=== PATIENT | male | born 1950 | race Caucasian/White ===

== ENCOUNTER 2021-07-23 13:10 | Emergency (ER) | payer OTHER ==
[2021-07-23 13:55] LABS: Hemoglobin 7.5 g/dL (13.5-17.5); Mean Corpuscular HGB CONC 34.6 g/dL (32.0-36.0); Mean Corpuscular Hemoglobin 30.4 pg (27.0-33.0); Mean Corpuscular Volume 87.9 fl (81.2-95.1); Mean Platelet Volume 10.1 fl (7.4-10.4); Platelet Count 405 10x3/uL (150-450); RBC Distribution Width 14.6 % (11.5-14.5); Red Blood Cell (RBC) Count 2.47 10x6/uL (4.32-5.72); White Blood Cell (WBC) Count 21.6 10x3/uL (3.5-10.5)
[2021-07-23 14:06] LABS: ALT (SGPT) 23 U/L (8-55); AST (SGOT) 24 U/L (5-34); Albumin 2.2 g/dL (3.4-4.8); Alkaline Phosphatase 58 U/L (40-110); Anion Gap 14 mmol/L (10-20); BUN (Urea Nitrogen) 108 mg/dL (8.4-25.7); CK (CPK) 26 U/L (30-200); Calc. Creatinine Clearance 0 mL/min (70-130); Calcium 7.8 mg/dL (7.8-10.44); Carbon Dioxide 21 mmol/L (23-31); Chloride 108 mmol/L (98-107); Globulin 3.3 g/dL (2.4-3.5); Glucose 134 mg/dL (80-115); Magnesium 2.3 mg/dL (1.6-2.6); Potassium 3.5 mmol/L (3.5-5.1); Protein, Total 5.5 g/dL (5.8-8.1); Sodium 139 mmol/L (136-145)
[2021-07-23 14:29] LABS: CKMB 1.5 ng/mL (0-6.6)
[2021-07-23 14:56] LABS: MDiff Complete? YES
[2021-07-23 15:01] LABS: Lymphocytes 7 % (21-51); Monocytes 4 % (0-10); Neutrophil 89 % (42-75)
[2021-07-23 15:02] LABS: Platelet Morphology Comment Appears Adequate
[2021-07-23 15:22] LABS: Bilirubin Neg (Negative); Blood, Urine Negative (Negative); Clarity Clear (Clear); Glucose, Urine (Dipstick) Normal (Negative); Ketone, Urine Negative (Negative); Leukocyte 25 (Negative); Nitrite Negative (Negative); Protein, Urine (Dipstick) 15 mg/dl (Neg-Trace); Urobilinogen Normal mg/dL (Less than 2)
[2021-07-23 15:31] LABS: Bacteria/HPF 4+ HPF (None Seen); Mucous/LPF Rare LPF (<2+); RBC/HPF None Seen HPF (0-3); Squamous Epithelial 0-3 HPF (0-3); Transitional Epithelial 0-3 HPF (None Seen); White Blood Cell Cast 0-3 LPF (None Seen)
[2021-07-23 19:14] LABS: SARS-CoV-2 NAA Rapid Test Not Detected (NotDetected)
== END 2021-07-23 17:45 ==
LOC: EEVIPCON 13:10 → CSHERS 13:10
DX: R29.810 Facial weakness (principal); D72.829 Elevated white blood cell count, unspecified; R91.8 Other nonspecific abnormal finding of lung field; Z20.822 Contact with and (suspected) exposure to COVID-19
CPT/HCPCS: 51701; 70450; 71045; 80053; 81003; 81015; 82550; 82553; 83735; 84484; 85025; 93005; 93010; U0002

== ENCOUNTER 2021-09-05 14:17 | Inpatient (IN) | payer OTHER ==
[2021-09-05 15:52] LABS: #Monocytes 0.3 10x3/uL (0.0-1.1); #Neutrophils 9.5 10x3/uL (1.5-8.4); %Basophils 0.1 % (0.0-2.0); %Lymphocytes 5.7 % (18.0-47.0); %Monocytes 2.4 % (0.0-10.0); %Neutrophils 91.6 % (40.0-75.0); Hemoglobin 10.1 g/dL (13.5-17.5); Mean Corpuscular HGB CONC 32.3 g/dL (32.0-36.0); Mean Corpuscular Hemoglobin 28.6 pg (27.0-33.0); Mean Corpuscular Volume 88.7 fl (81.2-95.1); Mean Platelet Volume 9.9 fl (7.4-10.4); Platelet Count 141 10x3/uL (150-450); RBC Distribution Width 16.9 % (11.5-14.5); Red Blood Cell (RBC) Count 3.53 10x6/uL (4.32-5.72); White Blood Cell (WBC) Count 10.4 10x3/uL (3.5-10.5)
[2021-09-05 15:56] LABS: ALT (SGPT) 17 U/L (8-55); AST (SGOT) 37 U/L (5-34); Albumin 2.4 g/dL (3.4-4.8); Alkaline Phosphatase 82 U/L (40-110); Anion Gap 19 mmol/L (10-20); BUN (Urea Nitrogen) 67 mg/dL (8.4-25.7); Bilirubin, Total 1.6 mg/dL (0.2-1.2); Calc. Creatinine Clearance 0 mL/min (70-130); Calcium 8.6 mg/dL (7.8-10.44); Carbon Dioxide 18 mmol/L (23-31); Chloride 107 mmol/L (98-107); Globulin 4.1 g/dL (2.4-3.5); Glucose 111 mg/dL (80-115); Potassium 3.2 mmol/L (3.5-5.1); Protein, Total 6.5 g/dL (5.8-8.1); Sodium 141 mmol/L (136-145)
[2021-09-05 16:08] LABS: Bilirubin 1+ (Negative); Blood, Urine 250 (Negative); Clarity Cloudy (Clear); Glucose, Urine (Dipstick) Normal (Negative); Ketone, Urine 5 mg/dL (Negative); Leukocyte 500 (Negative); Nitrite Negative (Negative); Protein, Urine (Dipstick) 30 mg/dl (Neg-Trace)
[2021-09-05 16:22] LABS: Bacteria/HPF 4+ HPF (None Seen); Squamous Epithelial 0-3 HPF (0-3)
[2021-09-05 17:31] LABS: INR-International Normal Ratio 1.5; PTT 31.7 sec (22.0-33.0); Prothrombin Time 15.9 sec (9.5-12.1)
[2021-09-05] MEDS ORDERED: cefTRIAXone\\ROCEPHIN 1 GM VIAL ONE (17:40)
[2021-09-05 18:18] LABS: Lactic Acid 1.8 mmol/L (0.5-2.2)
[2021-09-05] MEDS ORDERED: Ondansetron ODT 4 MG TAB PO PRN (19:49)
[2021-09-05] MEDS ORDERED: Guaifenesin DM 100-10/5 ML UDCUP PO PRN (19:49)
[2021-09-05] MEDS ORDERED: Spironolactone 25 MG TAB PO SCH (20:30)
[2021-09-05] MEDS: Heparin 5,000 UNITS/ML VIAL SC SCH ×2 (20:47→21:01)
[2021-09-05] MEDS: HYDROcodone/Acetaminophen 5/325 mg Tablet PO PRN (20:47)
[2021-09-05] MEDS ORDERED: VANCOMYCIN 1.25 GM/250 ML BAG 1.25 GM in Premix Bag 1 BAG IVPB SCH ×2 (21:00→22:00)
[2021-09-05] MEDS ORDERED: Potassium Chloride 10 MEQ in Premix Bag 1 BAG IVPB SCH (22:00)
[2021-09-05] MEDS ORDERED: Potassium Chloride 20 MEQ TAB PO SCH (22:00)
[2021-09-05] MEDS: Ondansetron PF 4 MG/2 ML Vial IVP PRN (23:12)
[2021-09-06] MEDS ORDERED: Furosemide 40 MG/4 ML VIAL SLOW IVP SCH (03:15)
[2021-09-06] MEDS: Furosemide 40 MG/4 ML VIAL SLOW IVP SCH ×2 (03:56→16:22)
[2021-09-06 06:36] LABS: #Monocytes 0.3 10x3/uL (0.0-1.1); #Neutrophils 7.6 10x3/uL (1.5-8.4); %Basophils 0.1 % (0.0-2.0); %Eosinophils 0.1 % (0.0-6.0); %Lymphocytes 6.7 % (18.0-47.0); %Monocytes 3.3 % (0.0-10.0); %Neutrophils 89.4 % (40.0-75.0); Hemoglobin 8.8 g/dL (13.5-17.5); Mean Corpuscular HGB CONC 31.7 g/dL (32.0-36.0); Mean Corpuscular Hemoglobin 27.8 pg (27.0-33.0); Mean Corpuscular Volume 87.7 fl (81.2-95.1); Mean Platelet Volume 10.1 fl (7.4-10.4); Platelet Count 114 10x3/uL (150-450); RBC Distribution Width 16.8 % (11.5-14.5); Red Blood Cell (RBC) Count 3.17 10x6/uL (4.32-5.72); White Blood Cell (WBC) Count 8.5 10x3/uL (3.5-10.5)
[2021-09-06 06:48] LABS: ALT (SGPT) 15 U/L (8-55); AST (SGOT) 25 U/L (5-34); Albumin 2.1 g/dL (3.4-4.8); Alkaline Phosphatase 79 U/L (40-110); Anion Gap 16 mmol/L (10-20); BUN (Urea Nitrogen) 69 mg/dL (8.4-25.7); Bilirubin, Total 1.2 mg/dL (0.2-1.2); Calc. Creatinine Clearance 31 mL/min (70-130); Calcium 7.9 mg/dL (7.8-10.44); Carbon Dioxide 21 mmol/L (23-31); Chloride 110 mmol/L (98-107); Globulin 3.6 g/dL (2.4-3.5); Glucose 117 mg/dL (80-115); Magnesium 2.3 mg/dL (1.6-2.6); Potassium 3.6 mmol/L (3.5-5.1); Protein, Total 5.7 g/dL (5.8-8.1); Sodium 143 mmol/L (136-145)
[2021-09-06 06:57] LABS: Platelet Morphology Comment Appears Decreased; RBC Morphology Normal
[2021-09-06] MEDS ORDERED: Spironolactone 25 MG TAB PO SCH (08:00)
[2021-09-06] MEDS: Albumin 25% 25 GM/100 ML BOT IVPB SCH ×4 (08:37→21:31)
[2021-09-06 11:29] LABS: Hemoglobin A1c 4.1 % (4.0-6.0)
[2021-09-06] MEDS ORDERED: Sodium Bicarbonate 2.5 MEQ/5 ML VIAL ONE (11:33)
[2021-09-06 13:18] LABS: BF Color Yellow; Body Fluid Source Peritoneal Fluid; Clarity Clear (Clear); Tube # EDTA
[2021-09-06] MEDS: Heparin 5,000 UNITS/ML VIAL SC SCH ×2 (16:03→19:02)
[2021-09-06 17:53] LABS: SARS-CoV-2 PCR by NAA Not Detected (NotDetected)
[2021-09-06] MEDS ORDERED: Albumin 25% 25 GM/100 ML BOT IVPB SCH (18:00)
[2021-09-06] MEDS: cefTRIAXone\\ROCEPHIN 2 GM in Sodium Chloride 0.9% 100 ML IVPB SCH (18:32)
[2021-09-06] MEDS: Vancomycin HCl 1 GM in Sodium Chloride 0.9% 250 ML 250 ML IVPB SCH (21:31)
[2021-09-07 04:07] LABS: #Monocytes 0.2 10x3/uL (0.0-1.1); %Eosinophils 0.8 % (0.0-6.0); %Lymphocytes 14.7 % (18.0-47.0); %Monocytes 3.8 % (0.0-10.0); %Neutrophils 80.3 % (40.0-75.0); Anion Gap 14 mmol/L (10-20); BUN (Urea Nitrogen) 70 mg/dL (8.4-25.7); Calc. Creatinine Clearance 33 mL/min (70-130); Calcium 7.9 mg/dL (7.8-10.44); Carbon Dioxide 22 mmol/L (23-31); Chloride 109 mmol/L (98-107); Glucose 102 mg/dL (80-115); Hemoglobin 7.2 g/dL (13.5-17.5); Mean Corpuscular HGB CONC 32.4 g/dL (32.0-36.0); Mean Corpuscular Hemoglobin 28.1 pg (27.0-33.0); Mean Corpuscular Volume 86.7 fl (81.2-95.1); Mean Platelet Volume 9.8 fl (7.4-10.4); RBC Distribution Width 16.7 % (11.5-14.5); Red Blood Cell (RBC) Count 2.56 10x6/uL (4.32-5.72); Sodium 142 mmol/L (136-145)
[2021-09-07 04:29] LABS: Platelet Count 86 10x3/uL (150-450); Platelet Morphology Comment Appears Decreased; RBC Morphology Normal
[2021-09-07] MEDS: Albumin 25% 25 GM/100 ML BOT IVPB SCH ×3 (04:57→15:09)
[2021-09-07] MEDS: Heparin 5,000 UNITS/ML VIAL SC SCH ×3 (07:11→19:18)
[2021-09-07] MEDS: HYDROcodone/Acetaminophen 7.5/325 mg Tablet PO PRN (07:29)
[2021-09-07] MEDS ORDERED: Potassium Chloride 20 MEQ TAB PO SCH (09:00)
[2021-09-07 11:37] LABS: Hemoglobin A1c 4.2 % (4.0-6.0)
[2021-09-07] MEDS ORDERED: Sodium Chloride 0.9% 100 ML ONE (15:52)
[2021-09-07] MEDS: cefTRIAXone\\ROCEPHIN 2 GM in Sodium Chloride 0.9% 100 ML IVPB SCH ×2 (16:18→16:47)
[2021-09-07 20:55] LABS: Vancomycin, Trough 16.2 ug/mL
[2021-09-07] MEDS: Vancomycin HCl 1 GM in Sodium Chloride 0.9% 250 ML 250 ML IVPB SCH (22:55)
[2021-09-08] MEDS: Albumin 25% 25 GM/100 ML BOT IVPB SCH ×2 (01:20→06:40)
[2021-09-08] MEDS: Heparin 5,000 UNITS/ML VIAL SC SCH ×3 (08:06→21:51)
[2021-09-08] MEDS: HYDROcodone/Acetaminophen 7.5/325 mg Tablet PO PRN ×3 (08:08→18:22)
[2021-09-08 08:25] LABS: Anion Gap 12 mmol/L (10-20); BUN (Urea Nitrogen) 75 mg/dL (8.4-25.7); Calc. Creatinine Clearance 40 mL/min (70-130); Carbon Dioxide 24 mmol/L (23-31); Chloride 108 mmol/L (98-107); Glucose 138 mg/dL (80-115); Iron 15 ug/dL (65-175); Iron Binding Capacity, Total 129 mcg/dL (261-462); Potassium 3.2 mmol/L (3.5-5.1); Sodium 141 mmol/L (136-145)
[2021-09-08 08:46] LABS: Ferritin 91.65 ng/mL (22-322)
[2021-09-08 09:01] LABS: Hep B Surf Ag NonReactive S/CO (NonReactive)
[2021-09-08] MEDS ORDERED: Potassium Chloride 20 MEQ TAB PO SCH (13:30)
[2021-09-08 15:02] LABS: #Eosinphils 0.1 10x3/uL (0.0-0.5); #Monocytes 0.3 10x3/uL (0.0-1.1); #Neutrophils 5.3 10x3/uL (1.5-8.4); %Basophils 0.2 % (0.0-2.0); %Eosinophils 1.7 % (0.0-6.0); %Lymphocytes 11.5 % (18.0-47.0); %Monocytes 4.3 % (0.0-10.0); %Neutrophils 81.8 % (40.0-75.0); Hemoglobin 7.3 g/dL (13.5-17.5); Mean Corpuscular HGB CONC 32.6 g/dL (32.0-36.0); Mean Corpuscular Hemoglobin 28.3 pg (27.0-33.0); Mean Corpuscular Volume 86.8 fl (81.2-95.1); Platelet Count 81 10x3/uL (150-450); RBC Distribution Width 16.4 % (11.5-14.5); Red Blood Cell (RBC) Count 2.58 10x6/uL (4.32-5.72); White Blood Cell (WBC) Count 6.5 10x3/uL (3.5-10.5)
[2021-09-08] MEDS ORDERED: Iron Sucrose Complex 200 MG in Sodium Chloride 0.9% 100 ML IVPB SCH (16:45)
[2021-09-08] MEDS: cefTRIAXone\\ROCEPHIN 2 GM in Sodium Chloride 0.9% 100 ML IVPB SCH (18:24)
[2021-09-08 19:05] LABS: HBCM Index 0.05 S/CO (0-0.79); Hep A IgM AB Non-Reactive (NonReactive); Hep A IgM S/CO 0.61 S/CO (0-0.79); Hepatitis B Core IgM Abs Non-Reactive (NonReactive)
[2021-09-08 19:25] LABS: Hep C IgG Ab Reflex HepC Qnt (NonReactive); Hep C Index 16.65 S/CO (0-0.79)
[2021-09-09] MEDS: HYDROcodone/Acetaminophen 7.5/325 mg Tablet PO PRN ×2 (00:53→20:12)
[2021-09-09] MEDS: Vancomycin HCl 1 GM in Sodium Chloride 0.9% 250 ML 250 ML IVPB SCH (01:14)
[2021-09-09] MEDS ORDERED: Vancomycin HCl 1 GM in Sodium Chloride 0.9% 250 ML 250 ML IVPB SCH (03:00)
[2021-09-09] MEDS ORDERED: Iron, Sodium Ferric Gluconate 250 MG, Admixture Fee 1 EACH in Sodium Chloride 0.9% 250 ... IVPB SCH (07:00)
[2021-09-09] MEDS: Heparin 5,000 UNITS/ML VIAL SC SCH ×2 (07:50→20:18)
[2021-09-09 08:20] LABS: #Eosinphils 0.1 10x3/uL (0.0-0.5); #Monocytes 0.2 10x3/uL (0.0-1.1); #Neutrophils 4.5 10x3/uL (1.5-8.4); %Eosinophils 1.7 % (0.0-6.0); %Lymphocytes 9.7 % (18.0-47.0); %Monocytes 3.9 % (0.0-10.0); %Neutrophils 84.3 % (40.0-75.0); Hemoglobin 8.1 g/dL (13.5-17.5); Mean Corpuscular HGB CONC 32.4 g/dL (32.0-36.0); Mean Corpuscular Hemoglobin 27.8 pg (27.0-33.0); Mean Corpuscular Volume 85.9 fl (81.2-95.1); Mean Platelet Volume 10.3 fl (7.4-10.4); Platelet Count 68 10x3/uL (150-450); Red Blood Cell (RBC) Count 2.91 10x6/uL (4.32-5.72); White Blood Cell (WBC) Count 5.4 10x3/uL (3.5-10.5)
[2021-09-09 08:37] LABS: ALT (SGPT) 13 U/L (8-55); AST (SGOT) 27 U/L (5-34); Albumin 2.9 g/dL (3.4-4.8); Alkaline Phosphatase 51 U/L (40-110); Anion Gap 14 mmol/L (10-20); BUN (Urea Nitrogen) 62 mg/dL (8.4-25.7); Bilirubin, Total 0.7 mg/dL (0.2-1.2); Calc. Creatinine Clearance 45 mL/min (70-130); Carbon Dioxide 21 mmol/L (23-31); Chloride 110 mmol/L (98-107); Globulin 2.8 g/dL (2.4-3.5); Glucose 135 mg/dL (80-115); Potassium 3.9 mmol/L (3.5-5.1); Protein, Total 5.7 g/dL (5.8-8.1); Sodium 141 mmol/L (136-145)
[2021-09-09] MEDS: HYDROcodone/Acetaminophen 5/325 mg Tablet PO PRN (12:37)
[2021-09-09] MEDS: Ondansetron PF 4 MG/2 ML Vial IVP PRN (21:46)
[2021-09-10 05:45] LABS: Anion Gap 14 mmol/L (10-20); BUN (Urea Nitrogen) 55 mg/dL (8.4-25.7); Calc. Creatinine Clearance 45 mL/min (70-130); Calcium 8.2 mg/dL (7.8-10.44); Carbon Dioxide 23 mmol/L (23-31); Chloride 110 mmol/L (98-107); Glucose 114 mg/dL (80-115); Potassium 3.6 mmol/L (3.5-5.1); Sodium 143 mmol/L (136-145)
[2021-09-10] MEDS: Heparin 5,000 UNITS/ML VIAL SC SCH ×2 (08:21→19:38)
[2021-09-10] MEDS: HYDROcodone/Acetaminophen 5/325 mg Tablet PO PRN ×2 (08:21→14:54)
[2021-09-10 10:39] LABS: HCV log10 5.869 (.); Hep C PCR-Quant 739000 IU/mL (.)
[2021-09-10] MEDS: Albumin 25% 25 GM/100 ML BOT IVPB SCH ×2 (16:16→21:33)
[2021-09-10 17:12] LABS: Smooth Muscle Total ABS 7 Units (0-19)
[2021-09-11 07:31] LABS: Anion Gap 15 mmol/L (10-20); BUN (Urea Nitrogen) 54 mg/dL (8.4-25.7); Calc. Creatinine Clearance 42 mL/min (70-130); Calcium 8.1 mg/dL (7.8-10.44); Carbon Dioxide 20 mmol/L (23-31); Chloride 110 mmol/L (98-107); Glucose 124 mg/dL (80-115); Potassium 3.8 mmol/L (3.5-5.1); Sodium 141 mmol/L (136-145)
[2021-09-11] MEDS: HYDROcodone/Acetaminophen 7.5/325 mg Tablet PO PRN (07:58)
[2021-09-11] MEDS: Albumin 25% 25 GM/100 ML BOT IVPB SCH ×3 (07:59→14:53)
[2021-09-11] MEDS ORDERED: Norepinephrine 8 MG/0.9% NS 250 ML IVPB SCH (08:30)
[2021-09-11] MEDS ORDERED: Octreotide Acetate 50 MCG/ML AMP SLOW IVP SCH (08:45)
[2021-09-11] MEDS ORDERED: Pantoprazole 40 MG VIAL IVP SCH (08:45)
[2021-09-11] MEDS ORDERED: Octreotide Acetate 1,250 MCG in Sodium Chloride 0.9% 250 ML 250 ML IVPB SCH (09:00)
[2021-09-11] MEDS ORDERED: Sodium Chloride 0.9% 1,000 ML IV SCH (09:00)
[2021-09-11] MEDS: Pantoprazole 80 MG in Sodium Chloride 0.9% 100 ML IVPB SCH ×2 (09:02→17:20)
[2021-09-11] MEDS ORDERED: Metoclopramide HCl 10 MG/2 ML VIAL IVP SCH (09:15)
[2021-09-11 09:20] LABS: Hemoglobin 8.1 g/dL (13.5-17.5); Mean Corpuscular Hemoglobin 28.8 pg (27.0-33.0); Mean Corpuscular Volume 96.1 fl (81.2-95.1); Mean Platelet Volume 12.2 fl (7.4-10.4); Platelet Count 56 10x3/uL (150-450); RBC Distribution Width 18.6 % (11.5-14.5); Red Blood Cell (RBC) Count 2.81 10x6/uL (4.32-5.72); White Blood Cell (WBC) Count 65.4 10x3/uL (3.5-10.5)
[2021-09-11 09:24] LABS: ALT (SGPT) 17 U/L (8-55); AST (SGOT) 47 U/L (5-34); Albumin 3.2 g/dL (3.4-4.8); Alkaline Phosphatase 74 U/L (40-110); Anion Gap 19 mmol/L (10-20); BUN (Urea Nitrogen) 53 mg/dL (8.4-25.7); Bilirubin, Total 1.3 mg/dL (0.2-1.2); Calc. Creatinine Clearance 38 mL/min (70-130); Carbon Dioxide 14 mmol/L (23-31); Chloride 111 mmol/L (98-107); Glucose 142 mg/dL (80-115); Magnesium 2.2 mg/dL (1.6-2.6); Phosphorus 3.2 mg/dL (2.3-4.7); Potassium 4.4 mmol/L (3.5-5.1); Protein, Total 6.2 g/dL (5.8-8.1); Sodium 140 mmol/L (136-145)
[2021-09-11] MEDS ORDERED: Rocuronium Bromide 10 MG/ML (10ML VIAL) ONE (09:35)
[2021-09-11] MEDS ORDERED: Fentanyl BOLUS 250 ML IVPB PRN (09:45)
[2021-09-11 09:56] LABS: PTT 94.2 sec (22.0-33.0); Prothrombin Time Greater than 90.0 sec (9.5-12.1)
[2021-09-11] MEDS ORDERED: Vancomycin 1.5 GRAM/300 ML BAG 1.5 GM in Premix Bag 1 BAG IVPB SCH ×2 (10:00→21:00)
[2021-09-11] MEDS: fentaNYL Citrate-0.9 % NaCl/PF 100 ML IVPB SCH (10:00)
[2021-09-11 10:33] LABS: Band 5 % (5-11); Lymphocytes 9 % (21-51); Monocytes 5 % (0-10)
[2021-09-11 10:34] LABS: MDiff Complete? YES; Metamyelocyte 12 % (0-0); Myelocyte 7 % (0-0); Neutrophil 59 % (42-75); Nucleated RBC 2 % (0)
[2021-09-11 10:35] LABS: Anisocytosis SLIGHT = 6-15 cells (100X) (0-5/hpf); Hypochromia SLIGHT = 6-15 cells (100X) (0-5/hpf); Polychromasia SLIGHT = 2-3 cells (100X) (0-2/hpf); Reflex for Review?? YES
[2021-09-11 10:36] LABS: Schistocytes SLIGHT = 2-5 cells (100X) (0-1/hpf)
[2021-09-11 10:37] LABS: Burr Cells SLIGHT = 2-5 cells (100X) (0-1/hpf); Platelet Morphology Comment Appears Decreased
[2021-09-11] MEDS ORDERED: Rocuronium Bromide 10 MG/ML (10ML VIAL) IVP SCH (10:45)
[2021-09-11 11:25] LABS: ALV-art Gradient 450.525 mmHg (0-20); Actual Bicarbonate (HCO3a) 17.2 mEq/L (22-28); Base Excess (BEa) -8.7 mEq/L (-2.0 to +3.0); CO2 Tension 37.1 mmHg (35.0-45.0); Calcium, Ionized (arterial) 1.11 mmol/L (1.12-1.30); Carboxyhemoglobin (COHb) 0.8 gm% (0.0-3.0); Hemoglobin (Hb) 7.4 g/dL (14.0-18.0); O2 Tension (PaO2), arterial 73.5 mmHg (> 70.0); Potassium - ABG Lab 4.2 mmol/L (3.70-5.30); Puncture Site RRA; pH, Arterial 7.28 (7.35-7.45)
[2021-09-11] MEDS: Cefepime 2 GM in Sodium Chloride 0.9% 100 ML IVPB SCH (12:03)
[2021-09-11 12:17] LABS: ALT (SGPT) 20 U/L (8-55); AST (SGOT) 60 U/L (5-34); Albumin 2.7 g/dL (3.4-4.8); Alkaline Phosphatase 71 U/L (40-110); Anion Gap 23 mmol/L (10-20); BUN (Urea Nitrogen) 54 mg/dL (8.4-25.7); Bilirubin, Total 1.5 mg/dL (0.2-1.2); Calc. Creatinine Clearance 36 mL/min (70-130); Calcium 7.8 mg/dL (7.8-10.44); Carbon Dioxide 15 mmol/L (23-31); Chloride 108 mmol/L (98-107); Globulin 2.5 g/dL (2.4-3.5); Glucose 137 mg/dL (80-115); Potassium 4.5 mmol/L (3.5-5.1); Protein, Total 5.2 g/dL (5.8-8.1); Sodium 141 mmol/L (136-145)
[2021-09-11 12:23] LABS: Lactic Acid 11.6 mmol/L (0.5-2.2)
[2021-09-11 12:41] LABS: Prothrombin Time Greater than 90.0 sec (9.5-12.1)
[2021-09-11 12:42] LABS: PTT 101.6 sec (22.0-33.0)
[2021-09-11] MEDS: Sodium Chloride 0.9% 500 ML IV SCH ×2 (12:45→23:34)
[2021-09-11] MEDS ORDERED: Sodium Bicarb 50 MEQ/50 ML VIAL IVP SCH (13:00)
[2021-09-11 13:23] LABS: Hemoglobin 6.3 g/dL (13.5-17.5); Mean Corpuscular HGB CONC 29.6 g/dL (32.0-36.0); Mean Corpuscular Hemoglobin 27.9 pg (27.0-33.0); Mean Corpuscular Volume 94.2 fl (81.2-95.1); Mean Platelet Volume 11.6 fl (7.4-10.4); Platelet Count 44 10x3/uL (150-450); RBC Distribution Width 17.9 % (11.5-14.5); Red Blood Cell (RBC) Count 2.26 10x6/uL (4.32-5.72); White Blood Cell (WBC) Count 55.1 10x3/uL (3.5-10.5)
[2021-09-11] MEDS ORDERED: Sodium Chloride 0.9% 500 ML IV SCH (14:15)
[2021-09-11 14:42] LABS: Band 5 % (5-11); Lymphocytes 3 % (21-51); Metamyelocyte 10 % (0-0); Monocytes 1 % (0-10); Myelocyte 4 % (0-0); Neutrophil 77 % (42-75); Nucleated RBC 3 % (0)
[2021-09-11 14:43] LABS: Anisocytosis SLIGHT = 6-15 cells (100X) (0-5/hpf); Hypochromia SLIGHT = 6-15 cells (100X) (0-5/hpf); MDiff Complete? YES; Polychromasia SLIGHT = 2-3 cells (100X) (0-2/hpf); Schistocytes SLIGHT = 2-5 cells (100X) (0-1/hpf)
[2021-09-11 14:44] LABS: Burr Cells SLIGHT = 2-5 cells (100X) (0-1/hpf)
[2021-09-11 14:45] LABS: Platelet Morphology Comment Appears Decreased
[2021-09-11 16:16] LABS: ANA Symphony (Qualitative) Negative (Negative); ANA Symphony (Quantitative) 0.3 Ratio (< 0.7 Negative); EliA Vaculitis New Method **** NEW METHOD ****; Mitochondrial Ab 0.8 U/mL (<4 Negative); dsDNA IgG Antibody 1.1 IU/mL (<10 Negative)
[2021-09-11 16:53] LABS: Mean Corpuscular HGB CONC 31.7 g/dL (32.0-36.0); Mean Corpuscular Hemoglobin 29.3 pg (27.0-33.0); Mean Corpuscular Volume 92.2 fl (81.2-95.1); Mean Platelet Volume 10.3 fl (7.4-10.4); Platelet Count 83 10x3/uL (150-450); RBC Distribution Width 15.8 % (11.5-14.5); Red Blood Cell (RBC) Count 2.05 10x6/uL (4.32-5.72); White Blood Cell (WBC) Count 40.7 10x3/uL (3.5-10.5)
[2021-09-11 17:45] LABS: Band 6 % (5-11); Lymphocytes 6 % (21-51); Metamyelocyte 6 % (0-0); Monocytes 2 % (0-10); Myelocyte 6 % (0-0); Neutrophil 73 % (42-75); Nucleated RBC 6 % (0)
[2021-09-11 17:49] LABS: MDiff Complete? YES
[2021-09-11 17:50] LABS: Anisocytosis SLIGHT = 6-15 cells (100X) (0-5/hpf); Basophilic Stippling SLIGHT = 1-2 cells (100X) (None Seen); Hypochromia SLIGHT = 6-15 cells (100X) (0-5/hpf); Polychromasia SLIGHT = 2-3 cells (100X) (0-2/hpf)
[2021-09-11 17:51] LABS: Burr Cells SLIGHT = 2-5 cells (100X) (0-1/hpf); Large Platelets SLIGHT; Platelet Morphology Comment Appears Decreased; Schistocytes SLIGHT = 2-5 cells (100X) (0-1/hpf)
[2021-09-11] MEDS ORDERED: Phytonadione 10 MG in Sodium Chloride 0.9% 50 ML IVPB SCH (20:00)
[2021-09-11] MEDS ORDERED: Midazolam HCl 2 mg/2 ml Vial SLOW IVP PRN (20:17)
[2021-09-11] MEDS ORDERED: Vecuronium 10 MG VIAL IVP PRN (20:31)
[2021-09-11 21:38] LABS: Actual Bicarbonate (HCO3a) 16.4 mEq/L (22-28); Base Excess (BEa) -10.9 mEq/L (-2.0 to +3.0); CO2 Tension 43.7 mmHg (35.0-45.0); Calcium, Ionized (arterial) 1.07 mmol/L (1.12-1.30); Carboxyhemoglobin (COHb) 0.6 gm% (0.0-3.0); Hemoglobin (Hb) 7.4 g/dL (14.0-18.0); O2 Tension (PaO2), arterial 93.1 mmHg (> 70.0); Potassium - ABG Lab 4.6 mmol/L (3.70-5.30); Puncture Site RBA; pH, Arterial 7.19 (7.35-7.45)
[2021-09-11 21:42] LABS: ALV-art Gradient 422.675 mmHg (0-20)
[2021-09-11 21:44] LABS: Hemoglobin 7.1 g/dL (13.5-17.5); Mean Corpuscular HGB CONC 32.7 g/dL (32.0-36.0); Mean Corpuscular Hemoglobin 29.3 pg (27.0-33.0); Mean Corpuscular Volume 89.7 fl (81.2-95.1); Mean Platelet Volume 10.9 fl (7.4-10.4); Platelet Count 67 10x3/uL (150-450); RBC Distribution Width 15.2 % (11.5-14.5); Red Blood Cell (RBC) Count 2.42 10x6/uL (4.32-5.72)
[2021-09-11] MEDS ORDERED: ADMIXTURE FEE IVPB SCH (21:45)
[2021-09-11] MEDS ORDERED: DESMOPRESSIN ACETATE IVPB SCH (21:45)
[2021-09-11] MEDS ORDERED: SODIUM CHLORIDE IVPB SCH (21:45)
[2021-09-11 21:52] LABS: Anion Gap 24 mmol/L (10-20); BUN (Urea Nitrogen) 56 mg/dL (8.4-25.7); Calc. Creatinine Clearance 35 mL/min (70-130); Calcium 7.5 mg/dL (7.8-10.44); Carbon Dioxide 14 mmol/L (23-31); Chloride 109 mmol/L (98-107); Glucose 122 mg/dL (80-115); Potassium 4.6 mmol/L (3.5-5.1); Sodium 142 mmol/L (136-145)
[2021-09-11 21:57] LABS: INR-International Normal Ratio 2.3; PTT 56.2 sec (22.0-33.0); Prothrombin Time 24.4 sec (9.5-12.1)
[2021-09-11 22:20] LABS: D-Dimer Test Greater than 35.20 mg/L FEU (0.19-0.50); Fibrinogen 68 mg/dL (220-504); Platelet Count 67 10x3/uL (150-450)
[2021-09-11 22:21] LABS: FSP-Qualitative ABNORMAL (Normal); FSP-Semiquantitative >=160 & <320 mcg/mL (Less than 5)
[2021-09-11] MEDS ORDERED: GenTeal Tears Severe Dry Eye GEL 10 G EA EYE PRN (22:27)
[2021-09-11] MEDS ORDERED: Furosemide 20 MG/2 ML VIAL SLOW IVP SCH (23:00)
[2021-09-11 23:25] LABS: Band 21 % (5-11); Eosinophils 2 % (0-10); Lymphocytes 4 % (21-51); Metamyelocyte 5 % (0-0); Monocytes 1 % (0-10); Myelocyte 6 % (0-0); Neutrophil 58 % (42-75); Nucleated RBC 4 % (0); Reactive Lymphocytes 3 % (0-10)
[2021-09-11 23:26] LABS: Macrocytosis SLIGHT = 6-15 cells (100X) (0-5/hpf); Microcytosis SLIGHT = 6-15 cells (100X) (0-5/hpf)
[2021-09-11 23:27] LABS: Ovalocytes SLIGHT = 2-5 cells (100X) (0-1/hpf); Polychromasia SLIGHT = 2-3 cells (100X) (0-2/hpf)
[2021-09-11 23:28] LABS: Anisocytosis SLIGHT = 6-15 cells (100X) (0-5/hpf); Platelet Morphology Comment Appears Decreased; Small Platelets SLIGHT; Toxic Granulation SLIGHT
[2021-09-11 23:29] LABS: MDiff Complete? YES
[2021-09-11 23:30] LABS: Schistocytes SLIGHT = 2-5 cells (100X) (0-1/hpf)
[2021-09-12 01:19] LABS: Hemoglobin 8.6 g/dL (13.5-17.5)
[2021-09-12 04:14] LABS: INR-International Normal Ratio 1.9; Prothrombin Time 20.3 sec (9.5-12.1)
[2021-09-12 04:16] LABS: Anion Gap 18 mmol/L (10-20); BUN (Urea Nitrogen) 58 mg/dL (8.4-25.7); Calc. Creatinine Clearance 36 mL/min (70-130); Calcium 7.6 mg/dL (7.8-10.44); Carbon Dioxide 19 mmol/L (23-31); Chloride 109 mmol/L (98-107); Glucose 175 mg/dL (80-115); Potassium 4.6 mmol/L (3.5-5.1); Sodium 141 mmol/L (136-145)
[2021-09-12 04:18] LABS: Hemoglobin 7.8 g/dL (13.5-17.5); Mean Corpuscular HGB CONC 34.2 g/dL (32.0-36.0); Mean Corpuscular Hemoglobin 29.7 pg (27.0-33.0); Mean Corpuscular Volume 86.7 fl (81.2-95.1); Mean Platelet Volume 10.8 fl (7.4-10.4); Platelet Count 31 10x3/uL (150-450); Red Blood Cell (RBC) Count 2.63 10x6/uL (4.32-5.72); White Blood Cell (WBC) Count 17.2 10x3/uL (3.5-10.5)
[2021-09-12 04:54] LABS: Band 16 % (5-11); Eosinophils 1 % (0-10); Lymphocytes 5 % (21-51); Metamyelocyte 3 % (0-0); Myelocyte 2 % (0-0)
[2021-09-12 04:55] LABS: Anisocytosis SLIGHT = 6-15 cells (100X) (0-5/hpf); Macrocytosis SLIGHT = 6-15 cells (100X) (0-5/hpf); Microcytosis SLIGHT = 6-15 cells (100X) (0-5/hpf); Neutrophil 73 % (42-75)
[2021-09-12 04:56] LABS: Large Platelets SLIGHT; MDiff Complete? YES; Platelet Morphology Comment Appears Decreased; Toxic Granulation SLIGHT
[2021-09-12] MEDS: Pantoprazole 80 MG in Sodium Chloride 0.9% 100 ML IVPB SCH (05:33)
[2021-09-12 08:16] LABS: ALV-art Gradient 436.725 mmHg (0-20); Actual Bicarbonate (HCO3a) 23.5 mEq/L (22-28); Base Excess (BEa) -1.2 mEq/L (-2.0 to +3.0); CO2 Tension 39.1 mmHg (35.0-45.0); Calcium, Ionized (arterial) 1.06 mmol/L (1.12-1.30); Carboxyhemoglobin (COHb) 1.1 gm% (0.0-3.0); Hemoglobin (Hb) 7.3 g/dL (14.0-18.0); O2 Tension (PaO2), arterial 84.8 mmHg (> 70.0); Potassium - ABG Lab 4.5 mmol/L (3.70-5.30); Puncture Site RRA
[2021-09-12] MEDS: Phytonadione 10 MG, Admixture Fee 1 EACH in Sodium Chloride 0.9% 50 ML IVPB SCH (09:10)
[2021-09-12] MEDS ORDERED: Lidocaine 1% PF 5 ML VIAL ONE (09:20)
[2021-09-12] MEDS ORDERED: Sodium Bicarbonate 2.5 MEQ/5 ML VIAL ONE (09:20)
[2021-09-12] MEDS ORDERED: VANCOMYCIN 1.25 GM/250 ML BAG 1.25 GM in Premix Bag 1 BAG IVPB SCH (10:00)
[2021-09-12] MEDS: Sodium Chloride 0.9% 500 ML IV SCH (10:55)
[2021-09-12] MEDS: Vancomycin HCl 1 GM in Sodium Chloride 0.9% 250 ML 250 ML IVPB SCH (11:00)
[2021-09-12] MEDS: Cefepime 2 GM in Sodium Chloride 0.9% 100 ML IVPB SCH (11:00)
[2021-09-12 11:37] LABS: BF Color Yellow; Body Fluid Source Paracentesis Fluid; Clarity Hazy (Clear); Tube # EDTA
[2021-09-12] MEDS: Octreotide Acetate 1,250 MCG in Sodium Chloride 0.9% 250 ML 250 ML IVPB SCH (12:15)
[2021-09-12 12:32] LABS: Hemoglobin 6.8 g/dL (13.5-17.5)
[2021-09-12 12:35] LABS: Lactic Acid 3.8 mmol/L (0.5-2.2)
[2021-09-12] MEDS: Pantoprazole 80 MG, Admixture Fee 1 EACH in Sodium Chloride 0.9% 100 ML IVPB SCH ×2 (15:16→21:30)
[2021-09-12] MEDS: metroNIDAZOLE 500 MG in Premix Bag 1 BAG IVPB SCH ×2 (15:18→21:04)
[2021-09-12] MEDS: fentaNYL Citrate-0.9 % NaCl/PF 100 ML IVPB SCH (19:44)
[2021-09-12 20:44] LABS: Hemoglobin 8.7 g/dL (13.5-17.5); Mean Corpuscular HGB CONC 35.5 g/dL (32.0-36.0); Mean Corpuscular Hemoglobin 29.5 pg (27.0-33.0); Mean Corpuscular Volume 83.1 fl (81.2-95.1); Mean Platelet Volume 11.2 fl (7.4-10.4); Platelet Count 27 10x3/uL (150-450); RBC Distribution Width 14.7 % (11.5-14.5); Red Blood Cell (RBC) Count 2.95 10x6/uL (4.32-5.72); White Blood Cell (WBC) Count 4.8 10x3/uL (3.5-10.5)
[2021-09-12] MEDS: Albumin 25% 25 GM/100 ML BOT IVPB SCH (21:16)
[2021-09-12] MEDS ORDERED: Atropine Sulfate 1 mg/10 ml Syringe ONE (21:25)
[2021-09-13 03:36] LABS: INR-International Normal Ratio 1.6; PTT 41.9 sec (22.0-33.0); Prothrombin Time 17.5 sec (9.5-12.1)
[2021-09-13 03:38] LABS: Hemoglobin 8.2 g/dL (13.5-17.5); Mean Corpuscular HGB CONC 35.8 g/dL (32.0-36.0); Mean Corpuscular Hemoglobin 29.5 pg (27.0-33.0); Mean Corpuscular Volume 82.4 fl (81.2-95.1); Mean Platelet Volume 10.6 fl (7.4-10.4); Platelet Count 23 10x3/uL (150-450); RBC Distribution Width 14.6 % (11.5-14.5); Red Blood Cell (RBC) Count 2.78 10x6/uL (4.32-5.72); White Blood Cell (WBC) Count 4.2 10x3/uL (3.5-10.5)
[2021-09-13 03:47] LABS: ALT (SGPT) 128 U/L (8-55); AST (SGOT) 389 U/L (5-34); Albumin 2.7 g/dL (3.4-4.8); Alkaline Phosphatase 59 U/L (40-110); Anion Gap 14 mmol/L (10-20); BUN (Urea Nitrogen) 69 mg/dL (8.4-25.7); Bilirubin, Total 3.2 mg/dL (0.2-1.2); Calc. Creatinine Clearance 39 mL/min (70-130); Calcium 7.4 mg/dL (7.8-10.44); Carbon Dioxide 20 mmol/L (23-31); Chloride 115 mmol/L (98-107); Globulin 1.7 g/dL (2.4-3.5); Glucose 121 mg/dL (80-115); Phosphorus 2.5 mg/dL (2.3-4.7); Potassium 3.9 mmol/L (3.5-5.1); Protein, Total 4.4 g/dL (5.8-8.1); Sodium 145 mmol/L (136-145)
[2021-09-13 04:03] LABS: Band 15 % (5-11); Lymphocytes 4 % (21-51); Monocytes 4 % (0-10); Myelocyte 2 % (0-0); Nucleated RBC 2 % (0); Reactive Lymphocytes 2 % (0-10)
[2021-09-13 04:05] LABS: Anisocytosis SLIGHT = 6-15 cells (100X) (0-5/hpf); Microcytosis SLIGHT = 6-15 cells (100X) (0-5/hpf); Neutrophil 73 % (42-75); Ovalocytes SLIGHT = 2-5 cells (100X) (0-1/hpf)
[2021-09-13 04:06] LABS: Burr Cells SLIGHT = 2-5 cells (100X) (0-1/hpf); Large Platelets SLIGHT; Platelet Morphology Comment Appears Decreased; Toxic Granulation SLIGHT
[2021-09-13 04:07] LABS: MDiff Complete? YES
[2021-09-13] MEDS: metroNIDAZOLE 500 MG in Premix Bag 1 BAG IVPB SCH ×3 (05:10→21:05)
[2021-09-13 08:17] LABS: Actual Bicarbonate (HCO3a) 22.7 mEq/L (22-28); Base Excess (BEa) 1.4 mEq/L (-2.0 to +3.0); CO2 Tension 25.1 mmHg (35.0-45.0); Calcium, Ionized (arterial) 1.05 mmol/L (1.12-1.30); Carboxyhemoglobin (COHb) 0.3 gm% (0.0-3.0); Hemoglobin (Hb) 9.5 g/dL (14.0-18.0); O2 Tension (PaO2), arterial 84.9 mmHg (> 70.0); Potassium - ABG Lab 3.7 mmol/L (3.70-5.30); Puncture Site RRA; pH, Arterial 7.58 (7.35-7.45)
[2021-09-13 08:20] LABS: ALV-art Gradient 382.825 mmHg (0-20)
[2021-09-13] MEDS: Albumin 25% 25 GM/100 ML BOT IVPB SCH ×2 (08:48→20:20)
[2021-09-13] MEDS: Pantoprazole 80 MG, Admixture Fee 1 EACH in Sodium Chloride 0.9% 100 ML IVPB SCH (08:49)
[2021-09-13] MEDS: Cefepime 2 GM in Sodium Chloride 0.9% 100 ML IVPB SCH (08:49)
[2021-09-13] MEDS: Vancomycin HCl 1 GM in Sodium Chloride 0.9% 250 ML 250 ML IVPB SCH ×2 (09:38→18:41)
[2021-09-13 10:45] LABS: Vancomycin, Trough 53.7 ug/mL
[2021-09-13 11:32] LABS: D-Dimer Test 20.96 mg/L FEU (0.19-0.50); INR-International Normal Ratio 1.6; PTT 42.3 sec (22.0-33.0); Prothrombin Time 17.2 sec (9.5-12.1)
[2021-09-13 12:21] LABS: Actual Bicarbonate (HCO3a) 22.2 mEq/L (22-28); Base Excess (BEa) -1.1 mEq/L (-2.0 to +3.0); Calcium, Ionized (arterial) 1.08 mmol/L (1.12-1.30); Carboxyhemoglobin (COHb) 0.1 gm% (0.0-3.0); Hemoglobin (Hb) 9.1 g/dL (14.0-18.0); O2 Tension (PaO2), arterial 88.5 mmHg (> 70.0); Potassium - ABG Lab 3.6 mmol/L (3.70-5.30); Puncture Site RRA; pH, Arterial 7.46 (7.35-7.45)
[2021-09-13] MEDS: Phytonadione 10 MG, Admixture Fee 1 EACH in Sodium Chloride 0.9% 50 ML IVPB SCH (12:21)
[2021-09-13] MEDS: Octreotide Acetate 1,250 MCG in Sodium Chloride 0.9% 250 ML 250 ML IVPB SCH (14:16)
[2021-09-13 16:43] LABS: Vancomycin, Random 30.7 ug/mL (See Comment)
[2021-09-13] MEDS: Pantoprazole 40 MG VIAL IVP SCH (20:21)
[2021-09-14 04:34] LABS: Vancomycin, Random 24.8 ug/mL (See Comment)
[2021-09-14 04:42] LABS: ALT (SGPT) 126 U/L (8-55); AST (SGOT) 215 U/L (5-34); Albumin 3.2 g/dL (3.4-4.8); Alkaline Phosphatase 181 U/L (40-110); Anion Gap 14 mmol/L (10-20); BUN (Urea Nitrogen) 78 mg/dL (8.4-25.7); Bilirubin, Total 4.8 mg/dL (0.2-1.2); Calc. Creatinine Clearance 36 mL/min (70-130); Calcium 7.7 mg/dL (7.8-10.44); Carbon Dioxide 21 mmol/L (23-31); Chloride 117 mmol/L (98-107); Glucose 110 mg/dL (80-115); Magnesium 2.3 mg/dL (1.6-2.6); Phosphorus 3.3 mg/dL (2.3-4.7); Potassium 3.8 mmol/L (3.5-5.1); Protein, Total 5.2 g/dL (5.8-8.1); Sodium 148 mmol/L (136-145)
[2021-09-14 04:47] LABS: #Monocytes 0.2 10x3/uL (0.0-1.1); #Neutrophils 4.5 10x3/uL (1.5-8.4); %Basophils 0.2 % (0.0-2.0); %Eosinophils 0.4 % (0.0-6.0); %Lymphocytes 5.8 % (18.0-47.0); %Monocytes 3.1 % (0.0-10.0); %Neutrophils 87.2 % (40.0-75.0); Hemoglobin 8.6 g/dL (13.5-17.5); Mean Corpuscular HGB CONC 33.9 g/dL (32.0-36.0); Mean Corpuscular Hemoglobin 29.2 pg (27.0-33.0); Mean Corpuscular Volume 86.1 fl (81.2-95.1); Mean Platelet Volume 11.6 fl (7.4-10.4); RBC Distribution Width 15.7 % (11.5-14.5); Red Blood Cell (RBC) Count 2.95 10x6/uL (4.32-5.72); White Blood Cell (WBC) Count 5.2 10x3/uL (3.5-10.5)
[2021-09-14 04:49] LABS: Platelet Count 21 10x3/uL (150-450)
[2021-09-14] MEDS: metroNIDAZOLE 500 MG in Premix Bag 1 BAG IVPB SCH (05:03)
[2021-09-14 05:10] VITALS: BMI 23.2
[2021-09-14] MEDS ORDERED: Vancomycin HCl 1 GM in Sodium Chloride 0.9% 250 ML 250 ML IVPB SCH (06:00)
[2021-09-14] MEDS: Pantoprazole 40 MG VIAL IVP SCH (07:59)
[2021-09-14] MEDS: Cefepime 2 GM in Sodium Chloride 0.9% 100 ML IVPB SCH (08:07)
[2021-09-14] MEDS: Phytonadione 10 MG, Admixture Fee 1 EACH in Sodium Chloride 0.9% 50 ML IVPB SCH ×2 (08:47→09:10)
[2021-09-14] MEDS ORDERED: Morphine 2 MG/ML VIAL SLOW IVP PRN (13:38)
[2021-09-14] MEDS ORDERED: Lorazepam 2 MG/ML VIAL SLOW IVP PRN (13:39)
[2021-09-14] MEDS ORDERED: Morphine 4 MG/ML VIAL SLOW IVP PRN (14:00)
[2021-09-14 18:02] VITALS: BP 105/67; TEMP 98
== END 2021-09-14 17:00 | disposition expired | DRG 432 ==
LOC: CSHERS 14:17 → SUATTDRO 14:17 → EEVIPCON 18:39 → CSHTELE 18:39 → CSHIMCU 09-11 09:00
PROVIDERS: ADMIT Family Medicine; ATTEND Internal Medicine
PROC: 0W9G3ZZ Drainage of Peritoneal Cavity, Percutaneous Approach (ICD-10-PCS; principal; 2021-09-06)
PROC: 30233N1 Transfusion of Nonautologous Red Blood Cells into Peripheral Vein, Percutaneous Approach (ICD-10-PCS; 2021-09-08)
PROC: 5A12012 Performance of Cardiac Output, Single, Manual (ICD-10-PCS; 2021-09-11)
PROC: 5A1945Z Respiratory Ventilation, 24-96 Consecutive Hours (ICD-10-PCS; 2021-09-11)
PROC: 3E033XZ Introduction of Vasopressor into Peripheral Vein, Percutaneous Approach (ICD-10-PCS; 2021-09-11)
PROC: 06L38CZ Occlusion of Esophageal Vein with Extraluminal Device, Via Natural or Artificial Opening Endoscopic (ICD-10-PCS; 2021-09-11)
PROC: 0DB68ZX Excision of Stomach, Via Natural or Artificial Opening Endoscopic, Diagnostic (ICD-10-PCS; 2021-09-11)
PROC: 0D598ZZ Destruction of Duodenum, Via Natural or Artificial Opening Endoscopic (ICD-10-PCS; 2021-09-11)
PROC: 0BH18EZ Insertion of Endotracheal Airway into Trachea, Via Natural or Artificial Opening Endoscopic (ICD-10-PCS; 2021-09-11)
PROC: 30233R1 Transfusion of Nonautologous Platelets into Peripheral Vein, Percutaneous Approach (ICD-10-PCS; 2021-09-11)
PROC: 0W9G3ZZ Drainage of Peritoneal Cavity, Percutaneous Approach (ICD-10-PCS; 2021-09-12)
PROC: 30233L1 Transfusion of Nonautologous Fresh Plasma into Peripheral Vein, Percutaneous Approach (ICD-10-PCS; 2021-09-12)
PROC: 30233K1 Transfusion of Nonautologous Frozen Plasma into Peripheral Vein, Percutaneous Approach (ICD-10-PCS; 2021-09-12)
DX: K70.31 Alcoholic cirrhosis of liver with ascites (principal); J15.9 Unspecified bacterial pneumonia; J96.01 Acute respiratory failure with hypoxia; E43 Unspecified severe protein-calorie malnutrition; K76.7 Hepatorenal syndrome; K26.4 Chronic or unspecified duodenal ulcer with hemorrhage; N17.9 Acute kidney failure, unspecified; J90 Pleural effusion, not elsewhere classified; E87.2 Acidosis; R57.9 Shock, unspecified; I85.10 Secondary esophageal varices without bleeding; D68.9 Coagulation defect, unspecified; D62 Acute posthemorrhagic anemia; K76.6 Portal hypertension; Z66 Do not resuscitate; Z51.5 Encounter for palliative care; E87.6 Hypokalemia; N18.30 Chronic kidney disease, stage 3 unspecified; K40.90 Unilateral inguinal hernia, without obstruction or gangrene, not specified as recurrent; Z20.822 Contact with and (suspected) exposure to COVID-19; F32.A Depression, unspecified; N30.80 Other cystitis without hematuria; D69.6 Thrombocytopenia, unspecified; B18.2 Chronic viral hepatitis C; D50.9 Iron deficiency anemia, unspecified; I46.9 Cardiac arrest, cause unspecified; R04.0 Epistaxis; K25.9 Gastric ulcer, unspecified as acute or chronic, without hemorrhage or perforation; K26.9 Duodenal ulcer, unspecified as acute or chronic, without hemorrhage or perforation; R57.8 Other shock; B96.1 Klebsiella pneumoniae [K. pneumoniae] as the cause of diseases classified elsewhere; I12.9 Hypertensive chronic kidney disease with stage 1 through stage 4 chronic kidney disease, or unspecified chronic kidney disease; Z68.23 Body mass index [BMI] 23.0-23.9, adult; Z85.828 Personal history of other malignant neoplasm of skin
CPT/HCPCS: 36415; 36416; 36430; 36600; 49083; 51701; 71045; 74018; 74176; 74183; 80048; 80053; 80074; 80202; 81003; 81015; 82105; 82140; 82570; 82728; 82805; 83036; 83516; 83540; 83550; 83605; 83735; 83880; 84100; 84484; 85014; 85018; 85025; 85049; 85060; 85300; 85362; 85379; 85384; 85610; 85730; 86038; 86225; 86850; 86900; 86901; 87040; 87070; 87077; 87086; 87186; 87205; 87522; 88112; 88305; 88312; 88342; 89051; 93005; 93306; 94002; 94003; 94760; 96374; C9113; J0692; J0696; J1644; J1940; J2270; J2354; J2405; J2597; J2765; J2916; J3370; J3430; J3480; J3490; J7030; J7050; J7620; P9016; P9035; P9047; P9059; U0003; U0005